=== PATIENT | male | born 1995 | race Caucasian/White ===

== ENCOUNTER 2017-07-12 18:14 | Inpatient (IN) | payer OTHER ==
[2017-07-12 18:54] LABS: HEMOGLOBIN 14.6 g/dl (14.0-18.0); MEAN CORPUSCULAR HEMOGLOBIN 31.7 pg (27.0-33.0); MEAN CORPUSCULAR HGB CONC 34.8 g/dl (32.0-36.5); MEAN CORPUSCULAR VOLUME 91.1 fl (80.0-96.0); PLATELET COUNT, AUTOMATED 176 10^3/uL (150-450); RED BLOOD COUNT 4.61 10^6/uL (4.30-6.10); RED CELL DISTRIBUTION WIDTH 12.2 % (11.5-14.5)
[2017-07-12 19:20] LABS: AMPHETAMINES LEVEL URINE NEGATIVE (NEGATIVE); BARBITURATES URINE NEGATIVE (NEGATIVE); BENZODIAZEPINES URINE NEGATIVE (NEGATIVE); CANNABINOIDS URINE NEGATIVE (NEGATIVE); COCAINE METABOLITE URINE NEGATIVE (NEGATIVE); METHADONE URINE NEGATIVE (NEGATIVE); OPIATES URINE NEGATIVE (NEGATIVE); PHENCYCLIDINE URINE NEGATIVE (NEGATIVE)
[2017-07-12] MEDS: ACETAMINOPHEN 325 MG TAB PO (19:20)
[2017-07-12 19:32] LABS: ALBUMIN 4.2 GM/DL (3.2-5.2); ALKALINE PHOSPHATASE 125 U/L (45-117); ALT/SGPT 25 U/L (12-78); ANION GAP 7 MEQ/L (8-16); AST/SGOT 19 U/L (7-37); BILIRUBIN,DIRECT 0.2 MG/DL (0.0-0.2); BLOOD UREA NITROGEN 10 MG/DL (7-18); CALCIUM LEVEL 8.5 MG/DL (8.5-10.1); CARBON DIOXIDE LEVEL 26 MEQ/L (21-32); CHLORIDE LEVEL 103 MEQ/L (98-107); CREATININE FOR GFR 1.28 MG/DL (0.70-1.30); ETHYL ALCOHOL (ETHANOL) 0.004 % (0.000-0.010); GLUCOSE, FASTING 89 MG/DL (70-100); SALICYLATE LEVEL < 1.7 MG/DL (5.0-30.0); SODIUM LEVEL 136 MEQ/L (136-145); THYROID STIMULATING HORMONE 0.506 uIU/ML (0.463-3.98); TOTAL PROTEIN 7.7 GM/DL (6.4-8.2)
[2017-07-12 19:38] LABS: ACETAMINOPHEN LEVEL < 2.0 UG/ML (10.0-30.0)
[2017-07-12] MEDS ORDERED: MAALOX 30 ML SUSP *UDC PO (20:00)
[2017-07-12] MEDS ORDERED: traZODone 50 MG TAB PO (20:00)
[2017-07-12] MEDS ORDERED: MOM 30ML SUSPENSION UDC PO (20:00)
[2017-07-12 22:26] LABS: INFLUENZA A AMPLIFICATION NEGATIVE (NEGATIVE); INFLUENZA B AMPLIFICATION NEGATIVE (NEGATIVE); RSV AMPLIFICATION NEGATIVE (NEGATIVE)
[2017-07-13] MEDS: buPROPion **XL** TABLET 150MG (WELLBUTRIN XL) PO (09:00)
[2017-07-13] MEDS: ACETAMINOPHEN TAB 650MG DOSE (2X325MG) PO (18:58)
[2017-07-13] MEDS: traZODone 50 MG TAB PO (21:00)
[2017-07-14] MEDS: buPROPion **XL** TABLET 150MG (WELLBUTRIN XL) PO (09:59)
[2017-07-14 11:31] LABS: KETONE, URINE AUTO RFX NEGATIVE (NEGATIVE); LEUKOCYTE ESTERASE UR AUTO RFX NEGATIVE (NEGATIVE); MUCUS, URINE RFX SMALL (NEGATIVE); NITRITE, URINE AUTO RFX NEGATIVE (NEGATIVE); RBC, URINE AUTO RFX 1 /HPF (0-3); SPECIFIC GRAVITY UR AUTO RFX 1.019 (1.002-1.035); SQUAM EPITHELIAL CELL UR AURFX 0 /HPF (0-6); WBC, URINE AUTO RFX 1 /HPF (0-3)
[2017-07-14] MEDS: traZODone 50 MG TAB PO (21:00)
[2017-07-15] MEDS: buPROPion **XL** TABLET 150MG (WELLBUTRIN XL) PO (09:13)
[2017-07-15] MEDS: traZODone 50 MG TAB PO (21:00)
[2017-07-16] MEDS: buPROPion **XL** TABLET 150MG (WELLBUTRIN XL) PO (08:58)
[2017-07-16] MEDS: traZODone 50 MG TAB PO (22:52)
[2017-07-17] MEDS: buPROPion **XL** TABLET 150MG (WELLBUTRIN XL) PO (08:40)
== END 2017-07-17 10:50 | disposition home or self-care (01) | DRG 885 ==
LOC: M ED 18:14 → M ED INP 19:50 → M PSY 22:35
DX: F33.2 Major depressive disorder, recurrent severe without psychotic features (principal); R45.851 Suicidal ideations; F60.89 Other specific personality disorders; Z76.5 Malingerer [conscious simulation]

== ENCOUNTER 2017-08-18 19:21 | Inpatient (IN) | payer OTHER ==
[2017-08-18 20:02] LABS: HEMATOCRIT 41.8 % (42.0-52.0); HEMOGLOBIN 14.4 g/dl (14.0-18.0); MEAN CORPUSCULAR HEMOGLOBIN 31.2 pg (27.0-33.0); MEAN CORPUSCULAR HGB CONC 34.4 g/dl (32.0-36.5); MEAN CORPUSCULAR VOLUME 90.5 fl (80.0-96.0); PLATELET COUNT, AUTOMATED 258 10^3/uL (150-450); RED BLOOD COUNT 4.62 10^6/uL (4.30-6.10); RED CELL DISTRIBUTION WIDTH 11.9 % (11.5-14.5); WHITE BLOOD COUNT 7.9 10^3/uL (4.0-10.0)
[2017-08-18 20:24] LABS: AMPHETAMINES LEVEL URINE NEGATIVE (NEGATIVE); BARBITURATES URINE NEGATIVE (NEGATIVE); BENZODIAZEPINES URINE NEGATIVE (NEGATIVE); CANNABINOIDS URINE NEGATIVE (NEGATIVE); COCAINE METABOLITE URINE NEGATIVE (NEGATIVE); METHADONE URINE NEGATIVE (NEGATIVE); OPIATES URINE NEGATIVE (NEGATIVE); PHENCYCLIDINE URINE NEGATIVE (NEGATIVE)
[2017-08-18 20:33] LABS: ACETAMINOPHEN LEVEL < 2.0 UG/ML (10.0-30.0); ALBUMIN 4.2 GM/DL (3.2-5.2); ALBUMIN/GLOBULIN RATIO 1.27 (1.00-1.93); ALKALINE PHOSPHATASE 120 U/L (45-117); ALT/SGPT 18 U/L (12-78); ANION GAP 8 MEQ/L (8-16); AST/SGOT 9 U/L (7-37); BILIRUBIN,DIRECT < 0.1 MG/DL (0.0-0.2); BILIRUBIN,TOTAL 0.4 MG/DL (0.2-1.0); BLOOD UREA NITROGEN 15 MG/DL (7-18); CALCIUM LEVEL 8.5 MG/DL (8.5-10.1); CARBON DIOXIDE LEVEL 25 MEQ/L (21-32); CHLORIDE LEVEL 108 MEQ/L (98-107); CREATININE FOR GFR 1.01 MG/DL (0.70-1.30); GLUCOSE, FASTING 79 MG/DL (70-100); POTASSIUM SERUM 3.9 MEQ/L (3.5-5.1); SALICYLATE LEVEL < 1.7 MG/DL (5.0-30.0); SODIUM LEVEL 141 MEQ/L (136-145); TOTAL PROTEIN 7.5 GM/DL (6.4-8.2)
[2017-08-18 20:34] LABS: ETHYL ALCOHOL (ETHANOL) < 0.003 % (0.000-0.010)
[2017-08-18] MEDS ORDERED: MAALOX 30 ML SUSP *UDC PO (21:15)
[2017-08-18] MEDS ORDERED: ACETAMINOPHEN TAB 650MG DOSE (2X325MG) PO (21:15)
[2017-08-18] MEDS ORDERED: MOM 30ML SUSPENSION UDC PO (21:15)
[2017-08-18] MEDS ORDERED: NICOTINE 21MG/24HR 1 EA TRANSDERMAL TD (21:15)
[2017-08-19] MEDS: buPROPion 75 MG TAB PO ×2 (10:24→20:06)
[2017-08-20] MEDS: buPROPion 75 MG TAB PO ×2 (08:59→22:03)
[2017-08-21] MEDS: buPROPion 75 MG TAB PO ×2 (08:07→21:52)
[2017-08-21] MEDS: OLANZapine ORAL DISINTEGRATING TAB 5MG PO (17:30)
[2017-08-22] MEDS: buPROPion 75 MG TAB PO (08:46)
[2017-08-22] MEDS: busPIRone 5 MG TAB PO ×2 (13:10→21:11)
[2017-08-23] MEDS: buPROPion **XL** TABLET 150MG (WELLBUTRIN XL) PO (08:56)
[2017-08-23] MEDS: busPIRone 5 MG TAB PO ×2 (08:56→20:50)
[2017-08-23] MEDS: traZODone 50 MG TAB PO (23:31)
[2017-08-24] MEDS: busPIRone 5 MG TAB PO ×2 (08:36→20:57)
[2017-08-24] MEDS: buPROPion **XL** TABLET 150MG (WELLBUTRIN XL) PO (08:36)
[2017-08-25] MEDS: busPIRone 5 MG TAB PO ×2 (08:31→22:01)
[2017-08-25] MEDS: buPROPion **XL** TABLET 150MG (WELLBUTRIN XL) PO (08:31)
[2017-08-26] MEDS: busPIRone 5 MG TAB PO ×2 (08:00→22:24)
[2017-08-26] MEDS: buPROPion **XL** TABLET 150MG (WELLBUTRIN XL) PO (08:00)
[2017-08-26] MEDS: traZODone 50 MG TAB PO (22:24)
[2017-08-27] MEDS: buPROPion **XL** TABLET 150MG (WELLBUTRIN XL) PO (08:20)
[2017-08-27] MEDS: busPIRone 5 MG TAB PO ×2 (08:21→22:39)
[2017-08-27] MEDS: ONDANSETRON 4 MG TAB (S0181) PO (15:44)
[2017-08-28] MEDS: PILL CUTTER/CRUSHER XX (08:18)
[2017-08-28] MEDS: busPIRone 5 MG TAB PO ×2 (08:18→22:39)
[2017-08-28] MEDS: buPROPion **XL** TABLET 150MG (WELLBUTRIN XL) PO (08:18)
[2017-08-29] MEDS: buPROPion **XL** TABLET 150MG (WELLBUTRIN XL) PO (08:02)
[2017-08-29] MEDS: busPIRone 5 MG TAB PO (08:02)
[2017-08-29] MEDS: PILL CUTTER/CRUSHER XX (08:03)
== END 2017-08-29 12:37 | disposition home or self-care (01) | DRG 881 ==
LOC: M ED 19:21 → M ED INP 21:01 → M PSY 21:33
DX: F32.9 Major depressive disorder, single episode, unspecified (principal); R45.851 Suicidal ideations; F41.9 Anxiety disorder, unspecified; F60.89 Other specific personality disorders; Z79.899 Other long term (current) drug therapy